=== PATIENT | female | born 1975 | race Two or more races ===

== ENCOUNTER → 2019-02-19 | Outpatient (CLI) | payer BC ==
--- NOTE | 2019-02-23 16:32 | RADIOLOGY IMAGING REPORT ---
FACILITY: [facility] PATIENT NAME: DESIRAE PAN : [id number] MR: [id number]: [id number] EXAM DATE: [id number] ORDERING PHYSICIAN: SIVA MAHONEY TECHNOLOGIST: Kitty Dial PROCEDURE: BILATERAL DIGITAL SCREENING MAMMOGRAM WITH CAD ASSISTED INTERPRETATION & 3D TOMOSYNTHESIS REASON FOR STUDY: Screening FAMILY HISTORY OF BREAST CANCER: BREAST PROCEDURES/TREATMENTS: COMPARISON: 11/14/18, 01/26/16, 08/12/14 VIEWS OBTAINED: Bilateral 2D & 3D full field CC & MLO projections BREAST DENSITY: The breasts are heterogeneously dense. MAMMOGRAM FINDINGS: There are no mammographic findings concerning for malignancy. No significant interval change. IMPRESSION: BIRADS 1: Negative. DIAGNOSTIC CATEGORY 1--NEGATIVE. RECOMMENDATIONS: ROUTINE MAMMOGRAM AND CLINICAL EVALUATION IN 1 YEAR. Dictated by: Ethan Gonzales on 02/23/2019 at 8:47 Transcribed by: KATRIN on 02/23/2019 at 14:00 Approved by: Ethan Gonzales on 02/23/2019 at 16:30 [facility]
== END ==
LOC: MAMO 09:29
PROVIDERS: ATTEND Obstetrics & Gynecology
DX: Z12.31 Encounter for screening mammogram for malignant neoplasm of breast (principal)
CPT/HCPCS: 77063; 77067